=== PATIENT | female | born 1980 | race Two or more races ===

== ENCOUNTER 2017-01-09 10:10 | Emergency (ER) | payer OTHER ==
--- NOTE | ~2017-01-09 | ER ---
PATIENT'S NAME: OREN SALAS [facility] AGE: 36 Y [address] ROOM: [place] [address] LOCATION: [facility] ADMIT DATE: 01/09/2017 ER/Outpatient Report DISCHARGE DATE: 01/09/2017 FAMILY PHYSICIAN: Physician, Unknown ATTENDING PHYSICIAN: Betsy Rios Time of Arrival: 1010 hours. Time of Evaluation: 1019 hours. IDENTIFICATION: A 36-year-old female. CHIEF COMPLAINT: Headache. HISTORY OF PRESENT ILLNESS: The patient is a 36-year-old female with a history of migraine headaches, who presents with a headache since 4 a.m. It is similar some to prior headaches she has had in the past. This was associated with nausea and vomiting. Posterior headache associated with photophobia, but the difference today she feels that her heart is pounding more. She also tells me she has been having intermittent headaches for the last 1 month. She has a history of hypertension and wonders if her blood pressure causing her problem and so made an appointment to see Dr. Rascon, but was unable to get in until February. The patient has had no fever or chills. No neck stiffness. No other problems or concerns. ALLERGIES: NO KNOWN DRUG ALLERGIES. CURRENT MEDICATIONS: 1. Motrin. 2. Excedrin Migraine. 3. Labetalol 200 mg b.i.d. 4. Losartan/hydrochlorothiazide, but she does not know the doses and she has not filled anything at [facility] since March. SOCIAL HISTORY: The patient is . Lives here in [place]. Works for [employer]. Tobacco use, denies. Alcohol use, occasional. Drug use, denies. MEDICAL PROBLEMS: Migraine headaches. PRIOR SURGERIES: PATIENT'S NAME: OREN SALAS [facility] AGE: 36 Y [address] ROOM: [place] [address] LOCATION: [facility] ADMIT DATE: 01/09/2017 ER/Outpatient Report DISCHARGE DATE: 01/09/2017 FAMILY PHYSICIAN: Physician, Unknown ATTENDING PHYSICIAN: Betsy Rios section. She also had preeclampsia. REVIEW OF SYSTEMS: All systems reviewed and negative other than what is noted in the HPI. PHYSICAL EXAMINATION: VITAL SIGNS: Height 5 feet and 0 inches, weight 66.9 kg, blood pressure 194/128, pulse 110, respirations 18, temperature 98.5, and saturations 96% on room air. After treatment in the ER, her blood pressure did come down to 175/113 and her pain improved from a 10 to 2. HEENT: Head: Normocephalic and atraumatic. Ears: TMs translucent both ears. Eyes: Pupils are equal and reactive to light and accommodation. Extraocular movements intact. Nose: Mucosa pink. No lesions or drainage. Mouth: No lesions. Pharynx benign. NECK: Supple. No lymphadenopathy. No nuchal rigidity. LUNGS: Clear to auscultation. HEART: Regular rate and rhythm. ABDOMEN: Soft, nondistended, and nontender. SKIN: [place], warm, and dry. No lesions or rashes noted. NEURO: The patient is alert and oriented x4. Cranial nerves II through XII grossly intact. Motor strength 5/5 throughout. Sensation is intact to light touch. No lower extremity edema. EMERGENCY DEPARTMENT COURSE: An IV was initiated. The patient was given 1 L of normal saline, Benadryl 50 mg IV, and Compazine 10 mg IV. CBC is unremarkable. Chemistry panel only remarkable for potassium of 3.1. UA is negative. Urine hCG is negative. Her pain improved, so we elected not to do a head CT. IMPRESSION: 1. Migraine headache. 2. High blood pressure. PLAN: Continue current medications. Recheck on Wednesday. Follow up sooner if any problems or concerns. The patient will take her blood pressure medicine when she gets home since she has not had it this morning. The patient and her understand and agree, and all questions have been answered. BETSY RIOS MD CAR/modl PATIENT'S NAME: OREN SALAS [facility] AGE: 36 Y [address] ROOM: [place], [place] [address] LOCATION: [facility] ADMIT DATE: 01/09/2017 ER/Outpatient Report DISCHARGE DATE: 01/09/2017 FAMILY PHYSICIAN: Physician, Unknown ATTENDING PHYSICIAN: Betsy Rios /[id number] d: 01/09/17 1830 t: 01/10/17 1458, OUTPATIENT REPORT
[~2017-01-09 10:10] MED LIST: PRENATAL 1+1)(P1 TAB PO; PROCARDIA XL30 MG PO; TRANDATE OR NO100 MG PO
[2017-01-09 10:42] LABS: BILIRUBIN URINE NEGATIVE (NEGATIVE); BLOOD URINE 50 /UL (NEGATIVE); COLOR URINE COLORLESS (YELLOW); GLUCOSE URINE NEGATIVE (NEGATIVE); KETONE URINE NEGATIVE (NEGATIVE); LEUKOCYTES URINE NEGATIVE /UL (NEGATIVE); NITRITE URINE NEGATIVE (NEGATIVE); PROTEIN URINE 100 mg/dL (NEGATIVE); SPEC GRAVITY URINE 1.015 (1.003-1.035); TURBIDITY URINE 1+ (CLEAR); UROBILINOGEN URINE NORMAL (NORMAL)
[2017-01-09 10:50] LABS: AMORPHOUS URINE 1+ (NEGATIVE); BACTERIA URINE NEGATIVE (NEGATIVE); EPITHELIAL URINE RARE #/HPF (NEGATIVE); RBC URINE 0-2 #/HPF (NEGATIVE); WBC URINE 0-2 #/HPF (NEGATIVE)
[2017-01-09 10:55] LABS: HEMATOCRIT 41.5 % (33.0-46.0); HEMOGLOBIN 14.4 g/dL (11.0-15.0); MCH 29.3 pg (27.0-34.0); MCHC 34.7 gm/dL (32.0-36.5); MCV 84.3 fl (83.0-98.0); MPV 10.4 fl (9.4-12.4); PLATELET COUNT 267 K/uL (150-450); RBC 4.92 M/uL (3.50-5.50); RDW-CV 12.6 % (11.9-14.6); WBC 10.8 K/uL (4.0-11.0)
[2017-01-09 11:12] LABS: ALBUMIN 3.6 gm/dL (3.5-5.0); ALK PHOS 103 IU/L (33-138); ALT 38 IU/L (12-78); ANION GAP 14.1 (10.0-19.0); AST 15 IU/L (10-40); BLOOD UREA NITROGEN 11 mg/dL (6-24); CALCIUM 8.3 mg/dL (8.5-10.5); CHLORIDE 107 mMol/L (96-110); CO2 24 mMol/L (22-32); CREATININE 0.7 mg/dL (0.5-1.1); ESTIMATED GFR (MDRD EQUATION) > 60; POTASSIUM 3.1 mMol/L (3.7-5.1); SODIUM 142 mMol/L (135-145); TOTAL BILIRUBIN 0.3 mg/dL (0.0-1.5); TOTAL PROTEIN 7.6 g/dL (6.0-8.4)
[2017-01-09 11:42] LABS: ABSOLUTE NEUTROPHIL CT (ANC) 9.6 K/uL (1.8-7.8); BANDED NEUTROPHIL # 0.5 K/uL (0.0-0.1); BANDED NEUTROPHILS % 5 %; LYMPHOCYTE # 1.1 K/uL (0.8-4.0); LYMPHOCYTE % 10 %; MONOCYTE # 0.1 K/uL (0.0-1.0); SEGMENTED NEUTROPHIL # 9.1 K/uL (1.8-7.8); SEGMENTED NEUTROPHIL % 84 %
== END 2017-01-09 12:33 | disposition disaster alternative care site (69) ==
LOC: GMED 10:10
PROVIDERS: Family Medicine
DX: G43.909 Migraine, unspecified, not intractable, without status migrainosus (principal); I10 Essential (primary) hypertension; Z98.890 Other specified postprocedural states; Z79.899 Other long term (current) drug therapy
CPT/HCPCS: J0780; J1200; J2001; J7030

== ENCOUNTER 2017-02-17 14:33 | Emergency (ER) | payer OTHER ==
--- NOTE | ~2017-02-17 | ER ---
PATIENT'S NAME: OREN SALAS [facility] AGE: 36 Y [address] ROOM: [place] [address] LOCATION: [facility] ADMIT DATE: 02/17/2017 ER/Outpatient Report DISCHARGE DATE: 02/17/2017 FAMILY PHYSICIAN: Tremayne Rascon MD ATTENDING PHYSICIAN: Betsy Rios Time of Arrival: 1438 hours. Time of Evaluation: 1443 hours. CHIEF COMPLAINT: Hypertension, headache. HISTORY OF PRESENT ILLNESS: The patient states she went to see Dr. Rascon today for a routine checkup and to get a refill of her blood pressure medicine. States her blood pressure was high there. They did have her fill a prescription for some losartan/hydrochlorothiazide and take one in the office. Her pressure continued to be high, so he sent her here to the ER for further evaluation. She states that she did have a headache this morning but does not have a headache at this time. States she is tired. She has a at home, who does not sleep well, and she has not rested well in the last 24 hours. She denies having any chest pain, has not felt short of breath, has not been nauseated. No vomiting. ALLERGIES: NO KNOWN ALLERGIES. CURRENT MEDICATIONS: On her chart and reviewed by me. PAST MEDICAL HISTORY: Migraine headaches and hypertension. PAST SURGICAL HISTORY: , last menstrual period was on 02/10/2017. SOCIAL HISTORY: She denies use of tobacco, drugs, only drinks alcohol on a social basis. REVIEW OF SYSTEMS: All negative other than those mentioned in the HPI. PHYSICAL EXAMINATION: VITAL SIGNS: She weighs 66.9 kg, blood pressure is 261/141, pulse of 96, respirations 16, temperature of 99.9, O2 saturation is 97% on room air. PATIENT'S NAME: OREN SALAS [facility] AGE: 36 Y [address] ROOM: [place] [address] LOCATION: [facility] ADMIT DATE: 02/17/2017 ER/Outpatient Report DISCHARGE DATE: 02/17/2017 FAMILY PHYSICIAN: Tremayne Rascon MD ATTENDING PHYSICIAN: Betsy Rios GENERAL: She is awake, alert, and oriented x4. SKIN: [place], warm, and dry. RESPIRATIONS: Even and nonlabored. Lung sounds are clear throughout. HEART: Regular rate and rhythm. ABDOMEN: Soft, nondistended. Bowel sounds are present. She did walk in with a steady even gait. LABORATORY DATA AND X-RAYS: EKG was completed. It was reviewed with Dr. Rios. Did have a comparison EKG from the clinic, does not show any significant changes. CBC from the clinic does show a white count of 11.5, hemoglobin is 14.4 with hematocrit of 41.3. Chem panel: Sodium is 140, potassium 3.1, chloride 103, BUN was 6 with a creatinine 0.77, GFR is greater than 60. We did do cardiac biomarkers here in the ER. CPK was 77 with a CK-MB of 0.7 and negative troponin. Lactate was 2.5. Procalcitonin is normal. EMERGENCY DEPARTMENT COURSE: I did start a liter of fluids and gave her labetalol 10 mg IV. She was monitored. Blood pressure did come down to 202/104, lowest was 192/98. We did repeat the labetalol. Continued to monitor. Her O2 saturation remained greater than 95%, heart rate was 70, blood pressure came down to 184/99. Monitor showed continuous sinus rhythm throughout the stay. IMPRESSION: Hypertension. PLAN: Home, rest, fluids. Do take losartan and hydrochlorothiazide as prescribed by Dr. Rascon. Encouraged to have her blood pressure checked. If she develops a headache, chest pain, shortness of breath, she needs to return to the ER. Follow up with primary provider in 2 to 3 days. She verbalized understanding. SHARONA LAWRENCE APRN FOR MD MURTAZA HERNANDEZ/josesito /[id number] d: 02/17/17 2355 t: 02/25/17 1233, OUTPATIENT REPORT
[2017-02-17 15:41] LABS: INR - (THERAPEUTIC) 0.94 (0.92-1.07); PROTIME 9.9 SECONDS (9.8-11.4)
[2017-02-17 15:57] LABS: CPK 77 IU/L (21-215)
== END 2017-02-17 17:06 | disposition disaster alternative care site (69) ==
LOC: GMED 14:33
PROVIDERS: Nurse Practitioner Family
DX: I10 Essential (primary) hypertension (principal); G43.909 Migraine, unspecified, not intractable, without status migrainosus; Z79.899 Other long term (current) drug therapy
CPT/HCPCS: J7030